=== PATIENT | male | born 1945 | race Caucasian/White ===

== ENCOUNTER 2019-11-15 14:00 | Emergency (ER) | payer OTHER, SELFPAY ==
[2019-11-15] VITALS (8 sets, daily range): BP systolic 103–136; BP diastolic 66–80; PULSE 58–117; RESP 1–26; TEMP 36.8; O2SAT 95–98; BMI 25.7
--- NOTE | 2019-11-15 14:03 | DI.RAD.S_ITS ---
PROCEDURE: XR CHEST 1V INDICATIONS: chest pain TECHNIQUE: One view of the chest was acquired. COMPARISON: None. FINDINGS: Surgical changes and devices: Draining Lungs and pleura: Lungs are clear. No pleural effusions or pneumothorax. Mediastinum: Mediastinal contours appear normal. Heart size is normal. Bones and chest wall: No suspicious bony lesions. Overlying soft tissues appear unremarkable. IMPRESSION: No acute disease Dictated by: Fito Pozo M.D. on 11/15/2019 at 14:32 Approved by: Fito Pozo M.D. on 11/15/2019 at 14:33
--- NOTE | 2019-11-15 14:56 | ED_ITS ---
HPI - Chest Pain General Chief Complaint: Chest Pain Stated Complaint: chest pain Time Seen by Provider: 11/15/19 14:18 Source: patient and family Mode of arrival: Ambulatory Limitations: no limitations History of Present Illness HPI narrative: Patient complains of an onset of chest pressure at 10:30 a.m. this morning. Last about 15 minutes. No discomfort at this time. Pain radiated to his neck both sides. Had dyspnea with it which has improved. No numbness tingling weakness. No syncope no headache. History atrial fibrillation and he states he did feel flutters but not as intense as past episodes of exacerbations. He has never had chest pain discomfort with exacerbations of atrial fibrillation. He is from [facility]. Vacationing here locally. Patient is on Pradaxa for blood thinning for atrial fibrillation. He states he has never been cardioverted before. EKG reviewed. Is not in RVR. His rate controlled. MD complaint: chest pain Related Data Home Medications Medication Instructions Recorded Confirmed albuterol sulfate [Proventil HFA] 2 puff INH #17 gm 05/21/12 omeprazole 40 mg PO BID #0 05/21/12 Allergies Allergy/AdvReac Type Severity Reaction Status Date / Time aspirin [ASPIRIN] Allergy Unknown Verified 11/15/19 14:09 morphine [MORPHINE] Allergy Unknown Verified 11/15/19 14:09 Penicillins [PENICILLINS] Allergy Unknown Verified 11/15/19 14:09 SULFA Allergy Unknown Uncoded 07/14/17 11:50 Review of Systems Review of Systems Narrative: GENERAL: Denies chills, fatigue, malaise, fever, sweats. HEENT: Denies sinus pain, ear pain, sore throat, difficulty swallowing, dizziness. RESPIRATORY: Complains of dyspnea, denies cough, wheezing, hemoptysis, sputum. CARDIOVASCULAR: Complains of chest pain, palpitations, denies orthopnea, edema, GASTROINTESTINAL: Denies nausea, vomiting, abdominal pain, diarrhea, constipation, melena. : Denies dysuria, frequency, incontinence, hematuria, urinary retention. MUSCULOSKELETAL: denies weakness, joint pain, or bony pain SKIN: Denies rash, skin lesions, or other NEUROLOGIC: Denies weakness, headache, numbness, change in speech, confusion, seizures, incoordination. PSYCHIATRIC: No concerning psychosocial issues. ROS Unobtainable: All systems reviewed & are unremarkable except as noted in HPI and below Patient History Social History Smoking Status: Unknown if ever smoked Smoking Status: Unknown if ever smoked alcohol intake frequency: 0-2 drinks per day Substance Use Type: does not use Exam Narrative Exam Narrative: GENERAL: patient appears stated age. Well-nourished, well- developed patient, in no distress, not toxic HEAD: Atraumatic. Normocephalic. EYES: Pupils equal round and reactive. Extraocular motions intact. No scleral icterus. No injection or drainage. ENT: Nose without bleeding, purulent drainage. Throat without erythema, tons illar hypertrophy or exudate. Airway patent. NECK: Trachea midline. Non tender CARDIOVASCULAR: Irregularly irregular without murmurs, gallops, or rubs. RESPIRATORY: Clear to auscultation. Breath sounds equal bilaterally. No wheezes, rales, or rhonchi. GASTROINTESTINAL: Abdomen soft, non-tender, nondistended. EXTREMITIES: No edema or joint tenderness. BACK: Nontender without deformity or crepitance. No flank tenderness. NEURO: AOx3. SKIN: No rash or erythema of visible areas PSYCH: Not anxious, is cooperative Initial Vital Signs Initial Vital Signs: Vital Signs Temperature 98.2 F 11/15/19 14:09 Pulse Rate 99 H 11/15/19 14:09 Respiratory Rate 12 11/15/19 14:09 Blood Pressure 119/66 11/15/19 14:09 Pulse Oximetry 97 11/15/19 14:09 Course Orders Ordered: ED Orders 11/15/19 14:03 XR chest 1V Stat EKG-12 Lead Stat 11/15/19 14:20 Complete Blood Count AUTO DIFF Stat Comprehensive Metabolic Panel Stat Lipase Stat Partial Thromboplastin Time Stat Prothrombin Time INR Stat Troponin & CK Cardiac Panel Stat 11/15/19 16:45 Troponin & CK Cardiac Panel Stat Reevaluation(s) Reevaluation #1: Patient up and walking to the bathroom without any distress chest pain or dyspnea. Remains chest pain-free here Time: 16:44 Consultations Consultation #1: Spoke with Dr. Ames, with [facility], managing patient care at this time as protocol with phone management. He states patient risk stratification is very low. Patient had a stress test last October 2018 read as normal at 7 Mets. Patient had a CT scan calcium scoring in January 2019. States patient can be discharged home and he can orchestrate close follow-up with patient's providers back in [facility] Time: 16:44 Consultation #2: dr ames called back and arranged pt pcp PA to call pt tomorrow at 1120 am for teleconference Time: 17:04 Vital Signs Vital signs: Vital Signs - 8 hr 11/15/19 14:09 11/15/19 14:10 11/15/19 14:30 Temperature 98.2 F Pulse Rate 99 H 117 H 99 H Respiratory Rate 12 1 L 15 Blood Pressure 119/66 109/70 Pulse Oximetry 97 96 95 11/15/19 15:00 11/15/19 15:30 11/15/19 16:00 Temperature Pulse Rate 94 H 87 87 Respiratory Rate 8 L 26 H 11 L Blood Pressure 103/72 114/68 130/80 Pulse Oximetry 96 95 96 11/15/19 16:45 11/15/19 17:06 Temperature Pulse Rate 61 58 L Respiratory Rate 20 Blood Pressure 136/71 Pulse Oximetry 98 98 MDM - Chest Pain Differential Diagnosis Differential diagnosis: Likely stable angina, unstable angina pectoris and chest pain Lab Data Attestation: I reviewed the patient's lab results. Result diagrams: 11/15/19 14:20 11/15/19 14:20 Labs: Lab Results 11/15/19 11/15/19 11/15/19 Range/Units 14:20 14:20 14:20 WBC 7.9 (4.5-11.0) X10^3/uL RBC 5.05 (4.5-5.9) X10^6/uL Hgb 16.1 (13.5-17.5) g/dL Hct 46.5 (41-53) % MCV 92.1 (80-100) fL MCH 31.8 (26-34) PG MCHC 34.5 (30-36) % RDW 13.8 (11.6-14.8) % Plt Count 248 (150-400) X10^3/uL Neut % (Auto) 68.5 (50-75) % Lymph % (Auto) 23.7 L (25-40) % Esmeralda % (Auto) 5.9 (3-14) % Eos % (Auto) 1.1 L (2-4) % Baso % (Auto) 0.8 (0-2) % Neut # (Auto) 5400 (1160-6652) /uL Lymph # (Auto) 1900 (2252-0113) /uL Esmeralda # (Auto) 500 (0-900) /uL Eos # (Auto) 100 (0-450) /uL Baso # (Auto) 100 (0-100) /uL PT 13.1 H (10.1-12.7) SECONDS INR 1.1 (0.9-1.3) APTT 51 H (26.4-36.2) SECONDS Sodium 132 L (137-145) mmol/L Potassium 4.2 (3.4-5.1) mmol/L Chloride 103 (98-107) mmol/L Carbon Dioxide 20 L (22-32) mmol/L BUN 16 (9-20) mg/dL Creatinine 0.72 (0.66-1.25) mg/dL Estimated GFR > 60.0 (>60) mL/min BUN/Creatinine Ratio 22.2 H (6-22) Glucose 148 H (80-110) mg/dL Calcium 9.7 (8.4-10.2) mg/dL Total Bilirubin 1.1 (0.2-1.3) mg/dL AST 24 (17-59) IU/L ALT 19 (<50) IU/L Alkaline Phosphatase 62 (38-126) U/L Total Creatine Kinase 57 (55-170) U/L CK-MB (CK-2) TNP CK-MB (CK-2) Rel Index TNP Troponin I < 0.012 (0.01-0.034) ng/mL Total Protein 7.3 (6.3-8.2) g/dL Albumin 4.2 (3.5-5.0) g/dL Globulin 3.1 (1.7-4.1) g/dL Albumin/Globulin Ratio 1.4 (1.0-2.8) Lipase 98 (23-300) U/L 11/15/19 Range/Units 16:45 WBC (4.5-11.0) X10^3/uL RBC (4.5-5.9) X10^6/uL Hgb (13.5-17.5) g/dL Hct (41-53) % MCV (80-100) fL MCH (26-34) PG MCHC (30-36) % RDW (11.6-14.8) % Plt Count (150-400) X10^3/uL Neut % (Auto) (50-75) % Lymph % (Auto) (25-40) % Esmeralda % (Auto) (3-14) % Eos % (Auto) (2-4) % Baso % (Auto) (0-2) % Neut # (Auto) (2316-2497) /uL Lymph # (Auto) (2835-9758) /uL Esmeralda # (Auto) (0-900) /uL Eos # (Auto) (0-450) /uL Baso # (Auto) (0-100) /uL PT (10.1-12.7) SECONDS INR (0.9-1.3) APTT (26.4-36.2) SECONDS Sodium (137-145) mmol/L Potassium (3.4-5.1) mmol/L Chloride (98-107) mmol/L Carbon Dioxide (22-32) mmol/L BUN (9-20) mg/dL Creatinine (0.66-1.25) mg/dL Estimated GFR (>60) mL/min BUN/Creatinine Ratio (6-22) Glucose (80-110) mg/dL Calcium (8.4-10.2) mg/dL Total Bilirubin (0.2-1.3) mg/dL AST (17-59) IU/L ALT (<50) IU/L Alkaline Phosphatase (38-126) U/L Total Creatine Kinase 60 (55-170) U/L CK-MB (CK-2) TNP CK-MB (CK-2) Rel Index TNP Troponin I < 0.012 (0.01-0.034) ng/mL Total Protein (6.3-8.2) g/dL Albumin (3.5-5.0) g/dL Globulin (1.7-4.1) g/dL Albumin/Globulin Ratio (1.0-2.8) Lipase (23-300) U/L Imaging Data Chest x-ray: Radiologist's Impression: [address] [address] XRay Report Signed Patient: Baron Anand LMR#: [id number] : 5Acct:[id number] Age/Sex: 74 / MDate of Service: 11/15/19 Loc: ED Accession Number: [id number] Procedure: XR chest 1V Ordering Provider: Ty Bobo MD PROCEDURE: XR CHEST 1V INDICATIONS: chest pain TECHNIQUE: One view of the chest was acquired. COMPARISON: None. FINDINGS: Surgical changes and devices: Draining Lungs and pleura: Lungs are clear. No pleural effusions or pneumothorax. Mediastinum: Mediastinal contours appear normal. Heart size is normal. Bones and chest wall: No suspicious bony lesions. Overlying soft tissues appear unremarkable. IMPRESSION: No acute disease Dictated by: Fito Pozo M.D. on 11/15/2019 at 14:32 Approved by: Fito Pozo M.D. on 11/15/2019 at 14:33 ECG Data Attestation: I personally reviewed and interpreted this ECG as follows: Interpretation: EKG atrial fibrillation ventricular rate 99, no ST elevation or depression MDM Narrative Medical decision making narrative: Implored with patient and for admission for observation here or at [facility]. Patient refuses to be admitted or observed. Currently chest pain free no altered mental status. He states he is going to drive back home tomorrow and arrange follow-up with his providers. I did speak with him that the provider spoke with kalani ames, will arrange for follow-up as well. Patient was scheduled for event monitor back in October dr ames desires repeat trop here as onset was 1030 today...second will be 6 hours from onset patient has not had repeated chest pain events in the past few months. Discharge Plan Departure Patient Disposition: Home Clinical Impression: Chest pain Qualifiers: Chest pain type: unspecified Qualified Code(s): R07.9 - Chest pain, unspecified Instructions: DI for Chest Pain Activity Restrictions/Additional Instructions: Return immediately if worse or if any questions or concerns or if he changes mind be admitted. Your primary care office provider will be call you tomorrow morning at 11:20 a.m. for teleconference. They will be calling your cell phone. Continue your home medications Prescriptions: No Action albuterol sulfate [Proventil HFA] 90 MCG/PUFF HFA aerosol inhaler 2 puff INH Qty: 17 RF: 0 omeprazole 40 MG capsule,delayed release(/EC) 40 mg PO BID Qty: 0 RF: 0
[2019-11-15 15:54] LABS: Add Manual Diff / Slide Review NO; Basophils Absolute Auto 100 /uL (0-100); Basophils Percent Auto 0.8 % (0-2); Eosinophils Absolute Auto 100 /uL (0-450); Eosinophils Percent Auto 1.1 % (2-4); Hematocrit 46.5 % (41-53); Hemoglobin 16.1 g/dL (13.5-17.5); Lymphocytes Absolute Auto 1900 /uL (1100-4500); Lymphocytes Percent Auto 23.7 % (25-40); Mean Corpuscular HGB Conc 34.5 % (30-36); Mean Corpuscular Hemoglobin 31.8 PG (26-34); Mean Corpuscular Volume 92.1 fL (80-100); Monocytes Absolute Auto 500 /uL (0-900); Monocytes Percent Auto 5.9 % (3-14); Neutrophils Absolute Auto 5400 /uL (1500-7000); Neutrophils Percent Auto 68.5 % (50-75); Platelet Count 248 X10^3/uL (150-400); Red Blood Cell Count 5.05 X10^6/uL (4.5-5.9); Red Cell Distribution Width 13.8 % (11.6-14.8); White Blood Cell Count 7.9 X10^3/uL (4.5-11.0)
[2019-11-15 15:57] LABS: INR 1.1 (0.9-1.3); Prothrombin Time 13.1 SECONDS (10.1-12.7)
[2019-11-15 16:00] LABS: PTT Partial Thromboplastin Tim 51 SECONDS (26.4-36.2)
[2019-11-15 16:01] LABS: Alanine Aminotransferase 19 IU/L (<50); Albumin 4.2 g/dL (3.5-5.0); Albumin Globulin Ratio 1.4 (1.0-2.8); Alkaline Phosphatase 62 U/L (38-126); Aspartate Aminotransferase 24 IU/L (17-59); BUN Creatinine Ratio 22.2 (6-22); Bilirubin Total 1.1 mg/dL (0.2-1.3); Blood Urea Nitrogen 16 mg/dL (9-20); Calcium 9.7 mg/dL (8.4-10.2); Carbon Dioxide 20 mmol/L (22-32); Chloride 103 mmol/L (98-107); Creatine Kinase 57 U/L (55-170); Estimated Glomerular Filt Rate > 60.0 mL/min (>60); Globulin 3.1 g/dL (1.7-4.1); Glucose 148 mg/dL (80-110); HEMOLYSIS < 15 (0-50); Lipase 98 U/L (23-300); Potassium 4.2 mmol/L (3.4-5.1); Sodium 132 mmol/L (137-145); Total Protein 7.3 g/dL (6.3-8.2)
[2019-11-15 16:12] LABS: Troponin I < 0.012 ng/mL (0.01-0.034)
[2019-11-15 17:07] LABS: Creatine Kinase 60 U/L (55-170)
[2019-11-15 17:21] LABS: Troponin I < 0.012 ng/mL (0.01-0.034)
== END 2019-11-15 17:46 | disposition home or self-care (01) ==
PROVIDERS: Emergency Provider Emergency Medicine
DX: R07.9 Chest pain, unspecified (principal); R06.00 Dyspnea, unspecified; I48.91 Unspecified atrial fibrillation; Z79.01 Long term (current) use of anticoagulants
CPT/HCPCS: 36415; 71045; 80053; 82550; 83690; 84484; 85025; 85610; 85730; 93005; 99284